=== PATIENT | male | born 1935 | race Caucasian/White ===

== ENCOUNTER 2019-12-11 11:19 | Inpatient (IN) ==
[2019-12-11] MEDS ORDERED: ACETAMINOPHEN 500 MG TABLET ONE (12:47)
[2019-12-11] MEDS ORDERED: ACETAMINOPHEN 500 MG TABLET PO STA (12:50)
[2019-12-11] MEDS ORDERED: SODIUM CHLORIDE 0.9% 500 ML IV STA (13:45)
[2019-12-11] MEDS ORDERED: VANCOMYCIN INJ 1,500 MG in SODIUM CHLORIDE 0.9% 500 ML IV STA (14:16)
[2019-12-11 14:34] LABS: Basophils % 0.2 % (0.0-0.8); Eosinophils % 0.2 % (0.00-10.9); Hematocrit 43.7 VOL% (42.0-52.0); Hemoglobin 14.1 GM/DL (14.0-18.0); Immature Granulocytes % 0.4 %; Immature Granulocytes Absolute 0.02 #; Lymphocytes # 0.3 10*3/uL (1.4-4.0); Lymphocytes % 6.4 % (21.2-54.2); Mean Corpuscular HGB Conc 32.3 GM/DL (32-36); Mean Corpuscular Volume 105.3 FL (87-102); Mean Platelet Volume 8.7 FL (9.6-12.0); Monocytes % 5.3 % (1.7-12.7); NRBC # 0.04 10*3/uL; Neutrophils % 87.5 % (38.7-73.9); Platelet Count 68 T/CUMM (130-400); Red Blood Count 4.15 MC/CUMM (3.8-5.5); Red Cell Distribution Width 17.4 % (9.3-17.3); White Blood Count 4.5 T/CUMM (4-12)
[2019-12-11 14:53] LABS: Albumin 2.1 G/DL (3.4-5.0); Bilirubin,Total 1.2 MG/DL (0.2-1.0); Calcium 8.8 MG/DL (8.5-10.1); Osmolality,Calculated 271.2 MOS/KG (273-304); Total Protein 5.4 G/DL (6.4-8.3)
[2019-12-11] MEDS ORDERED: ACETAMINOPHEN 325 MG TABLET PO PRN (16:29)
[2019-12-11] MEDS ORDERED: ONDANSETRON 4 MG/2 ML VIAL IV PRN (16:29)
[2019-12-11 16:30] LABS: Anisocytosis Slight; Hypochromasia Slight; Tear Drop Cells Slight
[2019-12-11 16:52] LABS: Sedimentation Rate-Westergren 76 MM/HR (0-20)
[2019-12-11] MEDS ORDERED: Ferric Citrate [Auryxia] 420 MG PO SCH (17:00)
[2019-12-11] MEDS: LACTULOSE 20 GM/30 ML UDCUP PO SCH (20:30)
[2019-12-11] MEDS: cefTRIAXone 2,000 MG in SYRINGE 1 EACH IV SCH (20:31)
[2019-12-11] MEDS: SODIUM CHLORIDE 0.9% 1,000 ML IV SCH (21:28)
[2019-12-12 05:06] LABS: Basophils % 0.2 % (0.0-0.8); Hematocrit 27.7 VOL% (42.0-52.0); Hemoglobin 9.1 GM/DL (14.0-18.0); Immature Granulocytes % 0.8 %; Immature Granulocytes Absolute 0.05 #; Lymphocytes # 0.5 10*3/uL (1.4-4.0); Lymphocytes % 7.1 % (21.2-54.2); Mean Corpuscular HGB Conc 32.9 GM/DL (32-36); Mean Corpuscular Volume 104.5 FL (87-102); Mean Platelet Volume 11.2 FL (9.6-12.0); Monocytes % 5.6 % (1.7-12.7); NRBC # 0.04 10*3/uL; Neutrophils % 86.3 % (38.7-73.9); Red Blood Count 2.65 MC/CUMM (3.8-5.5); Red Cell Distribution Width 17.4 % (9.3-17.3); White Blood Count 6.6 T/CUMM (4-12)
[2019-12-12 05:15] LABS: Platelet Count 89 T/CUMM (130-400)
[2019-12-12 05:25] LABS: Hypochromasia 1+; Ovalocytes Slight; Platelet Estimate Decreased
[2019-12-12 05:36] LABS: Calcium 8.7 MG/DL (8.5-10.1)
[2019-12-12] MEDS: PANTOPRAZOLE 40 MG TABLET PO SCH (08:53)
[2019-12-12] MEDS: LACTULOSE 20 GM/30 ML UDCUP PO SCH ×3 (08:53→20:19)
[2019-12-12] MEDS: allopurinoL 300 MG TABLET PO SCH (08:53)
[2019-12-12] MEDS ORDERED: VANCOMYCIN INJ 750 MG in SODIUM CHLORIDE 0.9% 250 ML IV PRN (09:41)
[2019-12-12] MEDS: LIDOCAINE/PRILOCAINE CREAM 5 GM TUBE TOP PRN (11:54)
[2019-12-12] MEDS ORDERED: VANCOMYCIN INJ 750 MG in SODIUM CHLORIDE 0.9% 250 ML IV ONE (17:00)
[2019-12-12] MEDS: cefTRIAXone 2,000 MG in SYRINGE 1 EACH IV SCH (17:58)
[2019-12-12] MEDS: SODIUM CHLORIDE 0.9% 1,000 ML IV SCH (17:58)
[2019-12-13] MEDS: LACTULOSE 20 GM/30 ML UDCUP PO SCH ×3 (08:40→20:44)
[2019-12-13] MEDS: allopurinoL 300 MG TABLET PO SCH (08:40)
[2019-12-13] MEDS: PANTOPRAZOLE 40 MG TABLET PO SCH (08:41)
[2019-12-13] MEDS ORDERED: ceFAZolin 2,000 MG in PREMIX 1 EACH IV ONE (10:30)
[2019-12-13] MEDS ORDERED: TISSUE ADHESIVE 1 EACH APPLICATOR TOP ONE (11:02)
[2019-12-13] MEDS ORDERED: BUPIVACAINE MPF 0.25% 30 ML VIAL ONE (11:02)
[2019-12-13] MEDS ORDERED: LIDOCAINE 1%/EPI INJ 20 ML VIAL ONE (11:02)
[2019-12-13] MEDS ORDERED: propofoL 200 MG/20 ML VIAL IV ONE (12:16)
[2019-12-13] MEDS ORDERED: LIDOCAINE 2% 5 ML VIAL ONE (12:16)
[2019-12-13] MEDS ORDERED: NEOMYCIN/POLYMYXIN/HC OTIC SOLN 10 ML BOTTLE BOTH EARS SCH (15:00)
[2019-12-13] MEDS: NEOMYCIN/POLYMYXIN/HC OTIC SOLN 10 ML BOTTLE BOTH EARS SCH ×2 (17:10→21:08)
[2019-12-14 05:34] LABS: Calcium 8.6 MG/DL (8.5-10.1); Osmolality,Calculated 281.5 MOS/KG (273-304)
[2019-12-14 07:39] LABS: Basophils % 0.4 % (0.0-0.8); Eosinophils # 0.1 10*3/uL (0.0-0.87); Eosinophils % 1.2 % (0.00-10.9); Hematocrit 27.6 VOL% (42.0-52.0); Hemoglobin 8.9 GM/DL (14.0-18.0); Immature Granulocytes Absolute 0.05 #; Lymphocytes # 0.7 10*3/uL (1.4-4.0); Lymphocytes % 15.1 % (21.2-54.2); Mean Corpuscular HGB Conc 32.2 GM/DL (32-36); Mean Corpuscular Volume 105.3 FL (87-102); Mean Platelet Volume 11.9 FL (9.6-12.0); Monocytes % 8.5 % (1.7-12.7); NRBC # 0.04 10*3/uL; Neutrophils % 73.8 % (38.7-73.9); Red Blood Count 2.62 MC/CUMM (3.8-5.5); Red Cell Distribution Width 17.3 % (9.3-17.3); White Blood Count 4.8 T/CUMM (4-12)
[2019-12-14 07:40] LABS: Platelet Count 58 T/CUMM (130-400)
[2019-12-14] MEDS: SODIUM CHLORIDE 0.9% 1,000 ML IV SCH ×2 (07:41→20:33)
[2019-12-14 07:57] LABS: Band Neutrophils 2 % (0-10); Eosinophils 2 % (0-10); Hypochromasia 1+; Lymphocytes 11 % (20-55); Platelet Estimate Decreased; Segmented Neutrophils 76 % (50-85); Total Cells Counted 100
[2019-12-14 07:58] LABS: Ovalocytes Slight
[2019-12-14] MEDS: allopurinoL 300 MG TABLET PO SCH (08:31)
[2019-12-14] MEDS: LACTULOSE 20 GM/30 ML UDCUP PO SCH ×3 (08:31→20:33)
[2019-12-14] MEDS: PANTOPRAZOLE 40 MG TABLET PO SCH (08:32)
[2019-12-14] MEDS: NEOMYCIN/POLYMYXIN/HC OTIC SOLN 10 ML BOTTLE BOTH EARS SCH ×4 (08:33→20:33)
[2019-12-14] MEDS: LIDOCAINE/PRILOCAINE CREAM 5 GM TUBE TOP PRN (12:25)
[2019-12-14] MEDS ORDERED: ceFAZolin 2,000 MG in PREMIX 1 EACH IV SCH (17:00)
[2019-12-15] MEDS ORDERED: POTASSIUM CHLORIDE 20 MEQ TABLET PO PRN (08:34)
[2019-12-15] MEDS: LACTULOSE 20 GM/30 ML UDCUP PO SCH ×3 (09:17→21:58)
[2019-12-15] MEDS: NEOMYCIN/POLYMYXIN/HC OTIC SOLN 10 ML BOTTLE BOTH EARS SCH ×3 (09:17→21:58)
[2019-12-15] MEDS: allopurinoL 300 MG TABLET PO SCH (09:17)
[2019-12-15] MEDS: PANTOPRAZOLE 40 MG TABLET PO SCH (09:17)
[2019-12-15] MEDS: SODIUM CHLORIDE 0.9% 1,000 ML IV SCH (21:58)
[2019-12-16] MEDS: LIDOCAINE/PRILOCAINE CREAM 5 GM TUBE TOP PRN (09:07)
[2019-12-16] MEDS: PANTOPRAZOLE 40 MG TABLET PO SCH (09:07)
[2019-12-16] MEDS: LACTULOSE 20 GM/30 ML UDCUP PO SCH ×3 (09:07→21:21)
[2019-12-16] MEDS: allopurinoL 300 MG TABLET PO SCH (09:07)
[2019-12-16] MEDS: NEOMYCIN/POLYMYXIN/HC OTIC SOLN 10 ML BOTTLE BOTH EARS SCH ×3 (09:09→21:22)
[2019-12-16] MEDS ORDERED: ceFAZolin 3,000 MG in SYRINGE 1 EACH IV SCH (17:00)
[2019-12-16] MEDS: SODIUM CHLORIDE 0.9% 1,000 ML IV SCH (18:08)
[2019-12-17 06:35] LABS: Basophils % 0.3 % (0.0-0.8); Eosinophils # 0.1 10*3/uL (0.0-0.87); Eosinophils % 1.4 % (0.00-10.9); Hematocrit 24.6 VOL% (42.0-52.0); Hemoglobin 7.9 GM/DL (14.0-18.0); Immature Granulocytes % 1.4 %; Immature Granulocytes Absolute 0.11 #; Lymphocytes # 1.7 10*3/uL (1.4-4.0); Lymphocytes % 21.6 % (21.2-54.2); Mean Corpuscular HGB Conc 32.1 GM/DL (32-36); Mean Corpuscular Volume 105.6 FL (87-102); Mean Platelet Volume 11.9 FL (9.6-12.0); Monocytes % 6.6 % (1.7-12.7); NRBC # 0.05 10*3/uL; Neutrophils % 68.7 % (38.7-73.9); Platelet Count 71 T/CUMM (130-400); Red Blood Count 2.33 MC/CUMM (3.8-5.5); Red Cell Distribution Width 17.4 % (9.3-17.3); White Blood Count 7.8 T/CUMM (4-12)
[2019-12-17 07:06] LABS: % Iron Saturation 42.4 % (18-50)
[2019-12-17 07:16] LABS: Ferritin 3461.1 ng/ml (26-388)
[2019-12-17 07:21] LABS: Folate 15.4 NG/ML (5.4-24.0); Vitamin B12 > 2000 PG/ML (211-911)
[2019-12-17 07:33] LABS: Sedimentation Rate-Westergren 85 MM/HR (0-20)
[2019-12-17] MEDS: PANTOPRAZOLE 40 MG TABLET PO SCH (08:42)
[2019-12-17] MEDS: allopurinoL 300 MG TABLET PO SCH (08:42)
[2019-12-17] MEDS: LACTULOSE 20 GM/30 ML UDCUP PO SCH ×4 (08:43→20:30)
[2019-12-17] MEDS: NEOMYCIN/POLYMYXIN/HC OTIC SOLN 10 ML BOTTLE BOTH EARS SCH ×3 (08:44→20:30)
[2019-12-17 12:46] LABS: Hypochromasia Slight; Macrocytosis Slight; Ovalocytes Few; Platelet Estimate Decreased; Spherocytes Few
[2019-12-17 23:11] LABS: Apearance,Urine Slightly Hazy (Clear); Bilirubin,Urine Negative (Negative); Blood, Urine Small mg/dL (Negative); Glucose,Urine (UA) Negative (Negative); Ketones,Urine 5 mg/dL (Negative); Mucus,Urine Occasional /LPF (Occasional); Nitrite,Urine Negative (Negative); Protein,Urine 30 MG/DL; Squamous Epithelial Cell,Urine Occasional /HPF (0-10); Urine Color Amber (Yellow); Urine Specific Gravity 1.023 (1.001-1.035); Urine Urobilinogen < 2.0 EU/DL (0.2-1.0); WBC,Urine 120 /HPF (0-6)
[2019-12-18 04:49] LABS: Basophils % 0.3 % (0.0-0.8); Eosinophils # 0.1 10*3/uL (0.0-0.87); Eosinophils % 1.1 % (0.00-10.9); Hematocrit 25.3 VOL% (42.0-52.0); Hemoglobin 8.2 GM/DL (14.0-18.0); Immature Granulocytes % 2.6 %; Immature Granulocytes Absolute 0.23 #; Lymphocytes # 1.7 10*3/uL (1.4-4.0); Lymphocytes % 18.9 % (21.2-54.2); Mean Corpuscular HGB Conc 32.4 GM/DL (32-36); Mean Corpuscular Volume 105.4 FL (87-102); Monocytes % 6.2 % (1.7-12.7); NRBC # 0.04 10*3/uL; Neutrophils % 70.9 % (38.7-73.9); Platelet Count 89 T/CUMM (130-400); Red Cell Distribution Width 17.3 % (9.3-17.3); White Blood Count 8.7 T/CUMM (4-12)
[2019-12-18 05:29] LABS: Alanine Aminotransferase < 6 U/L (16-61); Albumin 1.7 G/DL (3.4-5.0); Alkaline Phosphatase 167 U/L (45-117); Aspartate Amino Transferase 85 U/L (0-37); Blood Urea Nitrogen 21 MG/DL (7-18); Estimated Glom Filtration Rate 8 ML/MIN; Glucose 88 MG/DL (74-106); Osmolality,Calculated 278.5 MOS/KG (273-304); Total Protein 4.7 G/DL (6.4-8.3)
[2019-12-18] MEDS: PANTOPRAZOLE 40 MG TABLET PO SCH (09:22)
[2019-12-18] MEDS: LACTULOSE 20 GM/30 ML UDCUP PO SCH ×3 (09:22→21:24)
[2019-12-18] MEDS: allopurinoL 300 MG TABLET PO SCH (09:22)
[2019-12-18] MEDS: NEOMYCIN/POLYMYXIN/HC OTIC SOLN 10 ML BOTTLE BOTH EARS SCH ×3 (09:24→21:25)
[2019-12-18 09:36] LABS: Hemoglobin A1 (Alkaline) 96.8 % (96.5-98.5); Hemoglobin A2 (Alkaline) 3.2 % (1.5-3.5)
[2019-12-18] MEDS ORDERED: ZIPRASIDONE 20 MG/1 ML VIAL IM PRN (12:29)
[2019-12-18] MEDS ORDERED: TUBERCULIN SKIN TEST 0.1 ML SYRINGE INTRADERM ONE (14:02)
[2019-12-19 04:48] LABS: Basophils # 0.1 10*3/uL (0.0-0.2); Basophils % 0.5 % (0.0-0.8); Eosinophils # 0.1 10*3/uL (0.0-0.87); Eosinophils % 0.9 % (0.00-10.9); Hematocrit 25.4 VOL% (42.0-52.0); Hemoglobin 8.2 GM/DL (14.0-18.0); Immature Granulocytes Absolute 0.38 #; Lymphocytes # 1.9 10*3/uL (1.4-4.0); Lymphocytes % 19.9 % (21.2-54.2); Mean Corpuscular HGB Conc 32.3 GM/DL (32-36); Mean Platelet Volume 11.5 FL (9.6-12.0); Monocytes % 5.9 % (1.7-12.7); NRBC # 0.04 10*3/uL; Neutrophils % 68.8 % (38.7-73.9); Platelet Count 104 T/CUMM (130-400); Red Blood Count 2.42 MC/CUMM (3.8-5.5); Red Cell Distribution Width 17.6 % (9.3-17.3); White Blood Count 9.5 T/CUMM (4-12)
[2019-12-19] MEDS: allopurinoL 300 MG TABLET PO SCH (08:52)
[2019-12-19] MEDS: PANTOPRAZOLE 40 MG TABLET PO SCH (08:52)
[2019-12-19] MEDS: LACTULOSE 20 GM/30 ML UDCUP PO SCH (08:54)
[2019-12-19] MEDS: NEOMYCIN/POLYMYXIN/HC OTIC SOLN 10 ML BOTTLE BOTH EARS SCH (09:17)
[2019-12-19 12:07] VITALS: BP 132/49
== END 2019-12-19 15:28 | disposition swing bed (61) | DRG 314 ==
LOC: N.ED 11:19 → SUATTDRO 16:29 → N.EDINP 16:29 → N.5E 17:40
PROVIDERS: ADMIT Emergency Medicine; ATTEND Hospitalist